=== PATIENT | female | born 1950 | race Caucasian/White ===

== ENCOUNTER 2018-03-05 12:31 | Observation (INO) | payer OTHER, BC ==
--- NOTE | 2018-03-05 12:50 | PDOC ---
History of Present Illness - History of Present Illness Initial Comments: 67 year old female with PMH of HTN, HLD, HRT (estrogen) and sciatica presenting with chest pain and subjective SOB for the past two days. States that she had unusual leg swelling yesterday after work with left > right and noticed that she became short of breath while at home. She also had a slight central chest pressure, non radiating, 2/10 in severity, no nausea, no diaphoresis, but it was exertional. Denies fevers, chills cough, GI symptoms, or urinary symptoms. Denies recent travel or extended immobility. She had a negative stress test one month prior. 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 03/05/18 16:36 <Lev Mcgarry - Last Filed: 03/05/18 16:36> <Carolyn Means - Last Filed: 03/06/18 12:47> - General Chief Complaint: Chest Pain Stated Complaint: CHEST PAIN Time Seen by Provider: 03/05/18 12:50 Past History - Past Medical History Anemia: No Asthma: No Cancer: No Cardiac Disorders: No CVA: No COPD: No CHF: No Dementia: No Diabetes: No GI Disorders: Yes (COLON POLYPS; PEPTIC ULCER;H/H) Disorders: No HTN: Yes Hypercholesterolemia: Yes Liver Disease: No Seizures: No Thyroid Disease: No - Surgical History Abdominal Surgery: No Appendectomy: No Cardiac Surgery: Yes (cath, negative, no stents) Cholecystectomy: No Lung Surgery: No Neurologic Surgery: No Orthopedic Surgery: Yes (LEFT ROTATOR CUFF; RIGHT TENNIS ELBOW; ARTHOSCOPY RIGHT KNEE) - Suicide/Smoking/Psychosocial Hx Smoking History: Never smoked Have you smoked in the past 12 months: No Hx Alcohol Use: No Drug/Substance Use Hx: No Substance Use Type: None Hx Substance Use Treatment: No <Lev Mcgarry - Last Filed: 03/05/18 16:36> <Carolyn Means - Last Filed: 03/06/18 12:47> - Past Medical History Allergies/Adverse Reactions: Allergies Allergy/AdvReac Type Severity Reaction Status Date / Time sesame seed Allergy Swelling Verified 03/05/18 12:35 Home Medications: Ambulatory Orders Estradiol 2 mg PO DAILY 01/02/15 Hctz 25Mg/Triamterene [Dyazide 25/37.5 -] 1 cap PO DAILY 01/02/15 Simvastatin [Zocor -] 20 mg PO HS 01/02/15 Apremilast [Otezla] 30 mg PO DAILY 01/03/15 Aspirin Coated [Ecotrin -] 81 mg PO DAILY 01/03/15 Cyanocobalamin [Vitamin B12 -] 1,000 mcg PO DAILY 01/03/15 Gabapentin [Neurontin -] 300 mg PO BID 01/03/15 Valsartan 160 mg PO DAILY 05/26/16 Trazodone HCl 50 mg PO HS 06/03/16 Review of Systems - Review of Systems Constitutional: No: Chills, Diaphoresis HEENTM: No: See HPI, Blurred Vision, Tearing Respiratory: Yes: Shortness of Breath, SOB with Exertion. No: Cough, Orthopnea , Wheezing, Productive cough Cardiac (ROS): Yes: Chest Pain, Chest Tightness. No: Edema, Irregular Heart Rate, Lightheadedness, Palpitations ABD/GI: No: Diarrhea, Nausea, Vomiting : No: Burning, Dysuria, Discharge, Frequency Integumentary: No: Bruising, Change in Color, Erythema, Flushing, Lesions, Rash Neurological: No: Headache, Numbness, Paresthesia, Seizure, Tingling, Weakness Psychiatric: No: Anxiety, Depression Hematologic/Lymphatic: No: Anemia, Blood Clots <Lev Mcgarry - Last Filed: 03/05/18 16:36> *Physical Exam - Vital Signs Last Vital Signs Temp Pulse Resp BP Pulse Ox 98.2 F 82 20 160/61 99 03/05/18 12:33 03/05/18 12:33 03/05/18 12:33 03/05/18 12:33 03/05/18 12:33 - Physical Exam General Appearance: Yes: Nourished, Appropriately Dressed. No: Apparent Distress HEENT: positive: EOMI, KAREN, Normal ENT Inspection, Normal Voice Neck: positive: Trachea midline, Normal Thyroid, Supple. negative: Tender, Rigid Respiratory/Chest: positive: Lungs Clear, Normal Breath Sounds. negative: Chest Tender, Respiratory Distress, Accessory Muscle Use Cardiovascular: positive: Regular Rhythm, Regular Rate Gastrointestinal/Abdominal: positive: Normal Bowel Sounds, Flat, Soft. negative : Tender Musculoskeletal: positive: Normal Inspection. negative: Decreased Range of Motion Extremity: positive: Normal Capillary Refill, Normal Inspection, Normal Range of Motion. negative: Tender, Swelling Integumentary: positive: Normal Color, Dry, Warm. negative: Erythema, Swelling Neurologic: positive: Fully Oriented, Alert, Normal Mood/Affect, Normal Response , Motor Strength 5/5 <ZeferinoYidaysi - Last Filed: 03/05/18 16:36> - Vital Signs Last Vital Signs Temp Pulse Resp BP Pulse Ox 97.7 F 56 L 19 162/72 96 03/06/18 06:43 03/06/18 10:00 03/06/18 10:00 03/06/18 10:00 03/06/18 06:43 <Carolyn Means - Last Filed: 03/06/18 12:47> Heart Score/ECG Review - History History: Moderately suspicious - Electrocardiogram EKG: Non specific repolarization disturbance - Age Age: >/= 65 - Risk Factors Risk Factors Heart Score: Yes Hx Hypercholesterolemia, Yes Hx Hypertension Based on the list above the patient has:: 1-2 risk factors - Troponin Troponin: </= normal limit - Score Heart Score - Total: 5 <ZeferinoYidaysi - Last Filed: 03/05/18 16:36> ED Treatment Course - LABORATORY CBC & Chemistry Diagram: 03/05/18 13:34 03/05/18 13:34 <ZeferinoYidaysi - Last Filed: 03/05/18 16:36> - LABORATORY CBC & Chemistry Diagram: 03/06/18 06:10 03/06/18 06:10 - ADDITIONAL ORDERS Additional order review: 03/05/18 13:34 RBC 3.74 MCV 90.2 MCHC 35.2 RDW 12.8 MPV 7.2 L Neutrophils % 76.4 Lymphocytes % 17.1 Monocytes % 4.9 Eosinophils % 1.2 Basophils % 0.4 - Medications Given in the ED: ED Medications Discontinued Medications Generic Name Dose Route Start Last Admin Trade Name Freq PRN Reason Stop Dose Admin Aspirin 162 mg 03/05/18 18:54 03/05/18 19:30 Asa - PO 03/05/18 18:55 162 mg ONCE ONE Administration Aspirin 81 mg 03/05/18 18:54 03/05/18 19:30 Asa - PO 03/05/18 18:55 81 mg ONCE ONE Administration Potassium Chloride 20 meq 03/05/18 19:44 03/05/18 20:00 K-Dur - PO 03/05/18 19:45 20 meq ONCE ONE Administration <Carolyn Means - Last Filed: 03/06/18 12:47> Medical Decision Making - Medical Decision Making 67 year old female with with chest pain and heart score of 5 given exertional chest pain, HTN, HLD, and age. EKG deomsitring NSR, rate 78, OR 132, QRS 84, [id number], and ST wave flattening in V2-V6. Labs and first troponin normal. CTA negative for PE. Donald discussed with Dr. Schwartz for tele obs admission under Dr. Henry. ASA given. 03/05/18 18:51 <Lev Mcgarry - Last Filed: 03/05/18 16:36> *DC/Admit/Observation/Transfer <Lev Mcgarry - Last Filed: 03/05/18 16:36> <Carolyn Means - Last Filed: 03/06/18 12:47> Diagnosis at time of Disposition: Chest pain
[2018-03-05 13:45] LABS: BASO % 0.4 % (0-2.0); EOS % 1.2 % (0-4.5); HEMATOCRIT 33.8 % (32.4-45.2); HEMOGLOBIN 11.9 GM/dL (10.7-15.3); LYMPH % 17.1 % (8-40); MCH 31.8 pg (25.7-33.7); MCHC 35.2 g/dl (32.0-36.0); MEAN CELL VOLUME 90.2 fl (80-96); MEAN PLT VOLUME 7.2 fl (7.5-11.1); MONO % 4.9 % (3.8-10.2); NEUT % 76.4 % (42.8-82.8); PLATELET COUNT 296 K/MM3 (134-434); RBC 3.74 M/mm3 (3.60-5.2); RDW 12.8 % (11.6-15.6); WHITE BLOOD COUNT 9.5 K/mm3 (4.0-10.0)
[2018-03-05 13:55] LABS: INR 1.08 (0.82-1.09); PROTHROMBIN TIME (PATIENT) 12.2 SEC (9.7-13.0)
[2018-03-05 14:03] LABS: ALBUMIN 2.9 g/dl (3.4-5.0); ANION GAP 6 (8-16); BILIRUBIN,TOTAL 0.3 mg/dL (0.2-1.0); BLOOD UREA NITROGEN 12 mg/dL (7-18); CALCIUM 8.5 mg/dL (8.5-10.1); CHLORIDE 108 mmol/L (98-107); CO2 28 mmol/L (21-32); CREATININE 0.9 mg/dL (0.55-1.02); GLUCOSE,RANDOM 124 mg/dL (74-106); POTASSIUM 3.4 mmol/L (3.5-5.1); SGOT/AST 20 U/L (15-37); SGPT/ALT 26 U/L (12-78); SODIUM 142 mmol/L (136-145); TOT PROT 6.2 g/dl (6.4-8.2)
[2018-03-05 14:06] LABS: ALK PHOS 59 U/L (45-117)
--- NOTE | 2018-03-05 17:21 | PDOC ---
Attending Attestation - Resident Resident Name: Lev Mcgarry - ED Attending Attestation I have performed the following: I have examined & evaluated the patient, The case was reviewed & discussed with the resident, I agree w/resident's findings & plan, Exceptions are as noted - HPI HPI: 03/05/18 17:12 Patient is a 67 year old female with a significant past medical history of hypertension who presents to the ED with complaints of bilateral leg swelling that began yesterday evening. Patient reports getting home from work yesterday evening when she began to notice bilateral leg swelling. She reports her left leg appearing like a big balloon, while her right leg looked like a small balloon. Patient reports experiencing associated symptoms of mid sternal chest pressure, as well as slight difficulty breathing, prompting her to come into the ED for further evaluation. She reports she was winded when walking to the [employer] this morning. Pt takes estrogen for hormone replacement. She reports her leg swelling has improved today. Denies fevers, chills. Denies dysuria, hematuria. Denies contact with sick individuals, out of state travelling. Denies any other symptoms. Allergies: Sesame Social history: No smoking. No alcohol. No illicit drugs. Surgical history: left rotator cuff, left knee PMD: Dr. [place] Sunshine - Physicial Exam PE: 03/05/18 18:09 GENERAL: Awake, alert, and fully oriented, in no acute distress HEAD: No signs of trauma EYES: PERRLA, EOMI, sclera anicteric, conjunctiva clear ENT: Auricles normal inspection, hearing grossly normal, nares patent, oropharynx clear without exudates. Moist mucosa NECK: Normal ROM, supple, no lymphadenopathy, JVD, or masses LUNGS: Breath sounds equal, clear to auscultation bilaterally. No wheezes, and no crackles HEART: Regular rate and rhythm, normal S1 and S2, no murmurs, rubs or gallops ABDOMEN: Soft, nontender, normoactive bowel sounds. No guarding, no rebound. No masses EXTREMITIES: Normal range of motion, no edema. No clubbing or cyanosis. No cords, erythema, or tenderness NEUROLOGICAL: Normal speech, cranial nerves intact, negative pronator drift, 5/ 5 strength in all 4 extremities, normal sensation to light touch in all 4 extremities, normal cerebellar exam, normal gait, normal reflexes and tone SKIN: Warm, Dry, normal turgor, no rashes or lesions noted. - Medical Decision Making 03/05/18 18:16 67-year-old female with a history of hypertension hyperlipidemia presents emergency Department with 1 day of dyspnea on exertion, chest discomfort and resolved lower extremity edema. Vitals unremarkable. EKG with mild ST depressions in V5 and V6. Heart score 6. Given patient is on estrogen, will obtain a CTA to rule out PE. Given elevated HS and ST depressions on EKG, pt will need observation. Heart Score/ECG Review - History History: Moderately suspicious - Electrocardiogram EKG: Non specific repolarization disturbance - Age Age: >/= 65 - Risk Factors Risk Factors Heart Score: Yes Hx Hypercholesterolemia, Yes Hx Hypertension, Yes Hx Obesity Based on the list above the patient has:: >/=3 risk factors or Hx atherosclerotic disease - Troponin Troponin: </= normal limit - Score Heart Score - Total: 6 #1 03/05/18 18:14 Twelve-lead EKG was performed and reviewed by me. Normal sinus rhythm, rate 78. Normal axis. Mild ST depressions in leads V5 and V6. No ST elevations.
[2018-03-05] MEDS ORDERED: ASPIRIN 81 MG CHEWABLE TABLETS PO ONE ×2 (18:54)
[2018-03-05] MEDS ORDERED: ASPIRIN 81 MG CHEWABLE TABLETS ONE (19:24)
[2018-03-05] MEDS ORDERED: POTASSIUM CHLORIDE TABS 20 MEQ TABLET.ER (FP) PO ONE ×2 (19:44→20:12)
--- NOTE | 2018-03-05 20:10 | HP ---
CHIEF COMPLAINT: chest tightness and SOB PCP: Bita HISTORY OF PRESENT ILLNESS: This is a 67 year old female with a significant past medical history of HTN, HLD who presented to the ED with chest tightness since this morning with associated shortness of breath. She also noted some left arm pain with tingling. Pt reports just not feeling like herself. 2 days ago she also noticed swelling of her left leg after work which improved with elevation but is still slightly present. She also reports that she awoke with the right side of her face swollen yesterday that resolved spontaneously and today awoke with left sided facial swelling. She reports that the chest tightness and shortness of breath have not improved. ER course was notable for: (1) ECG with T wave flattening leads 3, aVF, V2-V6 (2) troponin neg (3) CTA neg for PE Recent Travel: pt denies PAST MEDICAL HISTORY: HTN, HLD, colon polyps, PUD, hiatal hernia, sciatica, psoriasis PAST SURGICAL HISTORY: cardiac cath 2009, WNL, no stents partial hysterectomy R breast lumpectomy 1968 Breas reduction tonsillectomy L rotator cuff R tennis elvow R knee arthroscopy Social History: Smoking: pt denies current or prior use Alcohol: pt denies Drugs: pt denies Family History: father age 27, accident mother alive, age 95, [place]/CABG age 80 brother , brain aneurysm aunt , stomach and breast CA Allergies sesame seed Allergy (Verified 03/05/18 12:35) Swelling HOME MEDICATIONS: 3 Medication Instructions Recorded Estradiol 2 mg PO DAILY 01/02/15 Hctz 25Mg/Triamterene [Dyazide 1 cap PO DAILY 01/02/1537.5 -] Simvastatin [Zocor -] 20 mg PO HS 01/02/15 Apremilast [Otezla] 30 mg PO DAILY 01/03/15 Aspirin Coated [Ecotrin -] 81 mg PO DAILY 01/03/15 Cyanocobalamin [Vitamin B12 -] 1,000 mcg PO DAILY 01/03/15 Gabapentin [Neurontin -] 300 mg PO BID 01/03/15 Valsartan 160 mg PO DAILY 05/26/16 Trazodone HCl 50 mg PO HS 06/03/16 REVIEW OF SYSTEMS CONSTITUTIONAL: Absent: fever, chills, diaphoresis, generalized weakness, malaise, loss of appetite, weight change HEENT: Present: facial swelling Absent: rhinorrhea, nasal congestion, throat pain, throat swelling, difficulty swallowing, mouth swelling, ear pain, eye pain, visual changes CARDIOVASCULAR: Present: chest pain Absent: syncope, palpitations, irregular heart rate, lightheadedness, peripheral edema RESPIRATORY: Present: shortness of breath Absent: cough, dyspnea with exertion, orthopnea, wheezing, stridor, hemoptysis GASTROINTESTINAL: Absent: abdominal pain, abdominal distension, nausea, vomiting, diarrhea, constipation, melena, hematochezia GENITOURINARY: Absent: dysuria, frequency, urgency, hesitancy, hematuria, flank pain, genital pain MUSCULOSKELETAL: Absent: myalgia, arthralgia, joint swelling, back pain, neck pain SKIN: Absent: rash, itching, pallor HEMATOLOGIC/IMMUNOLOGIC: Absent: easy bleeding, easy bruising, lymphadenopathy, frequent infections ENDOCRINE: Absent: unexplained weight gain, unexplained weight loss, heat intolerance, cold intolerance NEUROLOGIC: Absent: headache, focal weakness or paresthesias, dizziness, unsteady gait, seizure, mental status changes, bladder or bowel incontinence PSYCHIATRIC: Absent: anxiety, depression, suicidal or homicidal ideation, hallucinations. PHYSICAL EXAMINATION Vital Signs - 24 hr 3 03/05/18 03/05/18 03/05/18 12:33 13:41 16:57 Temperature 98.2 F 98.2 F Pulse Rate 82 Pulse Rate [ 86 Apical] Respiratory 20 20 Rate Blood Pressure 160/61 159/63 Blood Pressure 154/66 [Right Arm] O2 Sat by Pulse 99 99 Oximetry (%) GENERAL: Awake, alert, and fully oriented, in no acute distress. HEAD: Normal with no signs of trauma. EYES: Pupils equal, round and reactive to light, extraocular movements intact, sclera anicteric, conjunctiva clear. No lid lag. EARS, NOSE, THROAT: Ears normal, nares patent, oropharynx clear without exudates. Moist mucous membranes. no facial swelling noted NECK: Normal range of motion, supple without lymphadenopathy, JVD, or masses. LUNGS: Breath sounds equal, clear to auscultation bilaterally. No wheezes, and no crackles. No accessory muscle use. HEART: Regular rate and rhythm, normal S1 and S2 without murmur, rub or gallop. ABDOMEN: Soft, nontender, not distended, normoactive bowel sounds, no guarding, no rebound, no masses. No hepatomegaly or splenomegaly. MUSCULOSKELETAL: Normal range of motion at all joints. No bony deformities or tenderness. No CVA tenderness. UPPER EXTREMITIES: 2+ pulses, warm, well-perfused. No cyanosis. No clubbing. No peripheral edema. LOWER EXTREMITIES: 2+ pulses, warm, well-perfused. No calf tenderness. No peripheral edema right; trace left. NEUROLOGICAL: Cranial nerves II-XII intact. Normal speech. Normal gait. PSYCHIATRIC: Cooperative. Good eye contact. Appropriate mood and affect. SKIN: Warm, dry, normal turgor, no rashes or lesions noted, normal capillary refill. Laboratory Results - last 24 hr 3 03/05/18 03/05/18 03/05/18 03/05/18 13:34 13:34 13:34 18:30 WBC 9.5 RBC 3.74 Hgb 11.9 Hct 33.8 MCV 90.2 MCH 31.8 MCHC 35.2 RDW 12.8 Plt Count 296 MPV 7.2 L Absolute Neuts (auto) 7.2 Neutrophils % 76.4 Lymphocytes % 17.1 Monocytes % 4.9 Eosinophils % 1.2 Basophils % 0.4 Nucleated RBC % 0 PT with INR 12.20 INR 1.08 Sodium 142 Potassium 3.4 L Chloride 108 H Carbon Dioxide 28 Anion Gap 6 L BUN 12 Creatinine 0.9 Creat Clearance w eGFR > 60 Random Glucose 124 H Calcium 8.5 Total Bilirubin 0.3 AST 20 ALT 26 Alkaline Phosphatase 59 Creatine Kinase 86 Troponin I < 0.02 < 0.02 Total Protein 6.2 L Albumin 2.9 L ECG Normal sinus rhythm vent rate78, QTC 490, nonspecific ST/T wave abnomality, T wave flattened leads 3, aVF, V2-V6 prolonged QTC Radiology Reports EXAM: CTA CHEST WITH IV CONTRAST. PULMONARY EMBOLUS PROTOCOL. 3D MIP REASON FOR EXAM: r/o PE COMPARISON: None THIS IS A PRELIMINARY REPORT FROM [facility] FINDINGS: No evidence of pulmonary embolus or aortic dissection Small bilateral effusions with atelectasis. The upper lungs are clear. There is no pneumothorax. Heart size is normal and without pericardial effusion. No endobronchial lesions are seen. No pathologic mediastinal adenopathy. Bony thoracic cage and spine are intact with degenerative spine. 2.2 cm left renal cyst. IMPRESSION No CT evidence of pulmonary embolus or aortic dissection. Small bilateral effusions with atelectasis One or more of the following dose reduction techniques were used: automated exposure control, adjustment of the mA and/or kV according to patient size, use of iterative reconstruction technique. Individualized dose optimization techniques were used for this CT. THIS DOCUMENT HAS BEEN ELECTRONICALLY SIGNED Ariana Gannon D.O. 03/05/2018 19:44 EST ASSESSMENT/PLAN: 67yF with PMH HTN, HLD, colon polyps, PUD, hiatal hernia, sciatica, psoriasis presented to the ED with multiple complaints including chest tightness, SOB, left arm pain and tingling, facial swelling and left leg swelling. Chest pain - admit to tele - cardiology consult - troponin neg x 2, trend x 1 more - ECG in am, no old ECG to compare - CTA neg for PE - given ASA in ED HTN/HLD - cont home meds Leg swelling - doppler US venous ordered to r/o DVT - cont elevation PUD - no longer on zantac, monitor for dyspepsia sciatica - cont neurontin DVT PPX - low risk given expected LOS <48h FEN - tolerating po - BMP in am - low sodium/low fat diet Dispo: Pt currently requires further observation. Visit type - Emergency Visit Emergency Visit: Yes ED Registration Date: 03/05/18 Care time: The patient presented to the Emergency Department on the above date and was hospitalized for further evaluation of their emergent condition. - New Patient This patient is new to me today: Yes Date on this admission: 03/05/18 - Critical Care Critical Care patient: No Hospitalist Screening - Colonoscopy Questionnaire Colonoscopy Questionnaire: Colonoscopy Questionnaire - Patient: 50 - 75 years old and never had a screening colonoscopy: No History of colon or rectal polyps, or CA: Yes History of IBD, Crohn's disease or UC: No History of abdominal radiation therapy as a child: No - Relative: 1 with colon or rectal CA, or polyps at age 60 or younger: No Colon or rectal CA diagnosed at age 45 or younger: No Multiple relatives with colon or rectal CA: No - Outcome: Screening Result: Positive Screen
[2018-03-06 07:47] LABS: BASO % 0.3 % (0-2.0); EOS % 2.5 % (0-4.5); HEMATOCRIT 33.5 % (32.4-45.2); HEMOGLOBIN 11.9 GM/dL (10.7-15.3); LYMPH % 21.6 % (8-40); MCH 31.8 pg (25.7-33.7); MCHC 35.4 g/dl (32.0-36.0); MEAN CELL VOLUME 89.8 fl (80-96); MEAN PLT VOLUME 7.2 fl (7.5-11.1); NEUT % 67.6 % (42.8-82.8); PLATELET COUNT 270 K/MM3 (134-434); RBC 3.73 M/mm3 (3.60-5.2); RDW 12.6 % (11.6-15.6); WHITE BLOOD COUNT 8.4 K/mm3 (4.0-10.0)
[2018-03-06 08:07] LABS: ANION GAP 5 (8-16); BLOOD UREA NITROGEN 8 mg/dL (7-18); CALCIUM 8.4 mg/dL (8.5-10.1); CHLORIDE 107 mmol/L (98-107); CO2 30 mmol/L (21-32); CREATININE 0.7 mg/dL (0.55-1.02); GLUCOSE,RANDOM 72 mg/dL (74-106); MAGNESIUM 1.9 mg/dL (1.8-2.4); POTASSIUM 3.7 mmol/L (3.5-5.1); SODIUM 142 mmol/L (136-145)
[2018-03-06] MEDS ORDERED: PATIENT'S OWN MEDICATION (NON-FORMULARY) (Estradiol [Estradiol] 2 MG) PO SCH (10:00)
[2018-03-06] MEDS ORDERED: PATIENT'S OWN MEDICATION (NON-FORMULARY) (Apremilast [Otezla] 30 MG) PO SCH (10:00)
[2018-03-06] MEDS: VALSARTAN 160 MG TABLET (UD) PO SCH (10:11)
[2018-03-06] MEDS: TRIAMTERENE AND HCTZ - 37.5 MG/25 MG CAPSULE PO SCH (10:11)
[2018-03-06] MEDS: ASPIRIN COATED 81 MG TABLET.EC PO SCH (10:12)
[2018-03-06] MEDS: CYANOCOBALAMIN 1,000 MCG TABLET (FP) PO SCH (10:12)
[2018-03-06] MEDS: GABAPENTIN 300 MG CAPSULE (FP) PO SCH ×2 (10:12→21:08)
--- NOTE | 2018-03-06 10:20 | EKG ---
Test Reason : Blood Pressure : / mmHG Vent. Rate : 078 BPM Atrial Rate : 078 BPM P-R Int : 132 ms QRS Dur : 084 ms QT Int : 430 ms P-R-T Axes : 061 001 017 degrees QTc Int : 490 ms NORMAL SINUS RHYTHM POSSIBLE LEFT ATRIAL ENLARGEMENT NONSPECIFIC ST AND T WAVE ABNORMALITY PROLONGED QT ABNORMAL ECG WHEN COMPARED WITH ECG OF 07-SEP-2006 07:40, T WAVE VARIATION Confirmed by FUNMILAYO GARCIA, SHIREEN ([id number]) on 03/06/2018 10:20:14 AM Referred By: Confirmed By:SHIREEN MELLO MD
--- NOTE | 2018-03-06 10:37 | PN ---
Progress Note, Physician Chief Complaint: Patient is a 67 year old female with a significant past medical history of hypertension who presents to the ED with complaints of bilateral leg swelling that began yesterday evening. Patient reports getting home from work yesterday evening when she began to notice bilateral leg swelling. She reports her left leg appearing like a big balloon, while her right leg looked like a small balloon. Patient reports experiencing associated symptoms of mid sternal chest pressure, as well as slight difficulty breathing, prompting her to come into the ED for further evaluation. She reports she was winded when walking to the [employer] this morning. Pt takes estrogen for hormone replacement. She reports her leg swelling has improved today. History of Present Illness: patient seen in ER today leg swelling much reduced as well as facial swelling complaining of intermittent cough with mid epigastric chest tightness - Current Medication List Current Medications: Active Medications Aspirin (Ecotrin -) 81 mg PO DAILY [facility] Last Admin: 03/06/18 10:12 Dose: 81 mg Atorvastatin Calcium (Lipitor -) 10 mg PO HS [facility] Cyanocobalamin (Vitamin B12 -) 1,000 mcg PO DAILY [facility] Last Admin: 03/06/18 10:12 Dose: 1,000 mcg Gabapentin (Neurontin -) 300 mg PO BID [facility] Last Admin: 03/06/18 10:12 Dose: 300 mg Non-Formulary Medication (Apremilast [Otezla]) 30 mg PO DAILY [facility] Non-Formulary Medication (Estradiol [Estradiol]) 2 mg PO DAILY [facility] Trazodone HCl (Desyrel -) 50 mg PO HS [facility] Triamterene/HCTZ (Dyazide 25/37.5mg) 1 cap PO DAILY [facility] Last Admin: 03/06/18 10:11 Dose: 1 cap Valsartan (Diovan -) 160 mg PO DAILY [facility] Last Admin: 03/06/18 10:11 Dose: 160 mg - Objective Vital Signs: Vital Signs Temperature 97.7 F 03/06/18 06:43 Pulse Rate 56 L 03/06/18 10:00 Respiratory Rate 19 03/06/18 10:00 Blood Pressure 162/72 03/06/18 10:00 O2 Sat by Pulse Oximetry (%) 96 03/06/18 06:43 Constitutional: Yes: Calm Cardiovascular: Yes: Regular Rate and Rhythm, S1, S2 Respiratory: Yes: CTA Bilaterally Gastrointestinal: Yes: Normal Bowel Sounds, Soft Edema: Yes (trace) Neurological: Yes: Alert, Oriented Labs: CBC, BMP 03/06/18 06:10 03/06/18 06:10 INR, PTT INR 1.08 (0.82-1.09) 03/05/18 13:34 Problem List - Problems (1) Chest pain Assessment/Plan: tele monitoring CE 3 sets negative cardiology evaluation CTA prelim no PE awaiting final report echo aspirin and statin ekg noted for NSR and non specific t wave abnormality Code(s): R07.9 - CHEST PAIN, UNSPECIFIED (2) HTN (hypertension) Assessment/Plan: hctz and diovan Code(s): I10 - ESSENTIAL (PRIMARY) HYPERTENSION (3) Leg swelling Assessment/Plan: doppler no dvt currently leg swelling much reduced Code(s): M79.89 - OTHER SPECIFIED SOFT TISSUE DISORDERS
--- NOTE | 2018-03-06 10:44 | CON.CARD ---
Consult Consult Specialty:: cardio - History of Present Illness Chief Complaint: cp and sob History of Present Illness: 67 F noted cp, sob, leg swelling at home saw me 12/23 c/o localized pain L pectoral, sporadic at rest for 2 days off and on, lasting couple of minutes. no obvious GERD/GI, Mskel features. she noted no decr E.T., cp or sob with routine activity (limited by sciatica) stress echo ordered (pt with nonspecific ST-Ts on ECG since 2015--didn't complete stress test at that time as ordered) PRESENT SX'S: 3 days ago when arrived home from work noted L ankle/foot swollen. never had this before. no pain.--resolved by evening/AM next day yesterday AM walking to [employer] from car noted very unusual sob for her-- had to walk slower, not stop. no cp with this. made it home ok. vacuuming floor with small hand-held machine later in day noted sob which is very unusual for her. then seated later in day felt "sharp" pain center of chest assctd with tingling in L hand. no assctd diaph/LH/sob with that, no radiation. resolved in 1-5 min--no more cp since. PMH: HTN HPL FH (brother) ? aorta or LE aneurysm rupture (fatal) - Alcohol/Substance Use Hx Alcohol Use: No - Smoking History Smoking history: Never smoked Have you smoked in the past 12 months: No Home Medications - Allergies Allergies/Adverse Reactions: Allergies Allergy/AdvReac Type Severity Reaction Status Date / Time sesame seed Allergy Swelling Verified 03/05/18 12:35 - Home Medications Home Medications: Ambulatory Orders Estradiol 2 mg PO DAILY 01/02/15 Hctz 25Mg/Triamterene [Dyazide 25/37.5 -] 1 cap PO DAILY 01/02/15 Simvastatin [Zocor -] 20 mg PO HS 01/02/15 Apremilast [Otezla] 30 mg PO DAILY 01/03/15 Aspirin Coated [Ecotrin -] 81 mg PO DAILY 01/03/15 Cyanocobalamin [Vitamin B12 -] 1,000 mcg PO DAILY 01/03/15 Gabapentin [Neurontin -] 300 mg PO BID 01/03/15 Valsartan 160 mg PO DAILY 05/26/16 Trazodone HCl 50 mg PO HS 06/03/16 Review of Systems - Review of Systems Constitutional: denies: Chills, Fever Eyes: denies: Eye Pain HENT: denies: Nasal Congestion Neck: denies: Stiffness Cardiovascular: denies: Palpitations Respiratory: denies: Orthopnea, PND Gastrointestinal: denies: Diarrhea, Rectal Bleeding Genitourinary: denies: Burning, Hematuria Musculoskeletal: denies: Muscle Pain Integumentary: denies: Rash Neurological: denies: Numbness, Seizure, Syncope Endocrine: denies: Excessive Sweating Hematology/Lymphatic: denies: Excessive Bleeding Vital Signs: Vital Signs Temperature 97.7 F 03/06/18 06:43 Pulse Rate 56 L 03/06/18 10:00 Respiratory Rate 19 03/06/18 10:00 Blood Pressure 162/72 03/06/18 10:00 O2 Sat by Pulse Oximetry (%) 96 03/06/18 06:43 Constitutional: Yes: Well Nourished, No Distress Eyes: No: Sclera Icterus HENT: No: Nasal Congestion Neck: No: Decreased ROM Respiratory: Yes: CTA Bilaterally. No: Accessory Muscle Use, Rales, Wheezes Gastrointestinal: Yes: Normal Bowel Sounds. No: Distention, Hepatomegaly, Palpable Mass, Tenderness Cardiovascular: Yes: Regular Rate and Rhythm JVD: Yes Carotid Bruit: No PMI: Non-Displaced Heart Sounds: Yes: S1, S2. No: Gallop Murmur: No: Systolic Murmur, Diastolic Murmur Musculoskeletal: Yes: Other (No kyphosis) Extremities: No: Cool, Cyanosis Edema: No Peripheral Pulses: 2+ Left Carotid, 2+ Right Carotid, 2+ Left Doralis Pedis, 2+ Right Dorsalis Pedis Integumentary: No: Jaundice Neurological: Yes: Alert, Oriented (x3) Psychiatric: No: Agitated - Other Data Labs, Other Data: CBC, BMP 03/06/18 06:10 03/06/18 06:10 INR, PTT INR 1.08 (0.82-1.09) 03/05/18 13:34 Troponin, BNP 03/05/18 03/05/18 03/06/18 13:34 18:30 01:49 Troponin I < 0.02 < 0.02 < 0.02 Troponin, BNP 03/05/18 03/05/18 03/06/18 13:34 18:30 01:49 Troponin I < 0.02 < 0.02 < 0.02 Laboratory Tests 03/05/18 03/05/18 03/06/18 13:34 18:30 01:49 WBC Hgb Plt Count Sodium Potassium Carbon Dioxide BUN Creatinine Total Bilirubin 0.3 AST 20 ALT 26 Troponin I < 0.02 < 0.02 < 0.02 03/06/18 03/06/18 06:10 06:10 WBC 8.4 Hgb 11.9 Plt Count 270 Sodium 142 Potassium 3.7 Carbon Dioxide 30 BUN 8 Creatinine 0.7 Total Bilirubin AST ALT Troponin I Assessment/Plan ECG--NSR, no path q's. + NSST-Ts diffusely. similar to 12/23 office tracing CXR--clear lungs/pleura Stress Echo 01/23: 6 min (7 METs). No CP. 1-[address] depressions inferior leads, V4-6. NO ECHO ISCHEMIA SOB: -new exertional intolerance on DOA (03/05). -assctd unilateral LLE swelling on 03/03--no cord/tenderness on exam, sono negative for DVT. -no overt volume on exam but JVD impressive -CTA pending--apparently no PE prelim read (per admitting hospitalist note)--f/ u official report when available -echo done today--f/u report -nuclear stress test -check BNP -suspect new diastolic CHF here--if ischemia eval negative, will plan lasix trial and observe sx's chest pain: -past h/o non-cardiac CP with false positive nuclear-->benign cath per pt -recent same with stress echo likely false positive ECG, echo images normal augmentation -atypical sx's yesterday, ? anxiety related to new sob sx's. -ekg, enzymes benign -plan nuclear stress test to confidently r/o ischemia HTN: -current bp moderately elevated, ? anxiety component given ER presentation -continue home meds, observe BP trend for 24 hrs more HPL: -cont home statin
[2018-03-06 13:36] VITALS: BMI 33.6
[2018-03-06 13:44] LABS: N-TERMINAL BNP 776.48 pg/ml (5-125)
--- NOTE | 2018-03-06 16:52 | ECHO ---
Name: DINAH RODRIGUEZ Exam:Adult Echocardiogram Study Date: 03/06/2018 11:46 AM Age: 67 yrs Reason For Study: WALL MOTION Height: 59 in Weight: 140 lb BSA: 1.6 m2 MMode/2D Measurements & Calculations IVSd: 0.81 cm Ao root diam: 2.1 cm LVIDd: 4.7 cm LA dimension: 3.9 cm LVIDs: 3.1 cm LVPWd: 0.94 cm EDV(Teich): 102.1 ml RV S Alexis: 12.3 cm/sec ESV(Teich): 38.9 ml Doppler Measurements & Calculations MV E max alexis: 103.2 cm/sec MR max alexis: 293.2 cm/sec MV A max alexis: 106.6 cm/sec MR max P.4 mmHg MV E/A: 0.97 MV dec time: 0.23 sec TR max alexis: 247.3 cm/sec Med Peak E' Alexis: 8.0 cm/sec TR max P.5 mmHg Med E/e': 12.9 Lat Peak E' Alexis: 7.4 cm/sec Lat E/e': 13.9 Procedure Technically limited study. Left Ventricle The left ventricle is normal in size. Left ventricular systolic function is normal. Ejection Fraction = 60- 65%. No regional wall motion abnormalities noted. Right Ventricle The right ventricle is normal size. The right ventricular systolic function is normal. RV systolic TD I is 12 cm/s. Atria The left atrial size is normal. Right atrial size is normal. Mitral Valve The mitral valve is normal in structure and function. There is mild mitral regurgitation. Tricuspid Valve The tricuspid valve is normal in structure and function. There is mild tricuspid regurgitation. Pulmo nary artery systolic pressure is at least 35 mmHg assuming RA pressure of 8 mmHg. Aortic Valve The aortic valve is normal in structure and function. The aortic valve is trileaflet. The aortic valv e opens well. No aortic regurgitation is present. Pulmonic Valve The pulmonic valve is not well visualized. Great Vessels The aortic root is normal size. Pericardium/Pleura There is no pericardial effusion. Interpretation Summary Technically limited study The left ventricle is normal in size. Left ventricular systolic function is normal. No regional wall motion abnormalities noted. Ejection Fraction = 60-65%. The right ventricular systolic function is normal. The left atrial size is normal. Right atrial size is normal. There is mild mitral regurgitation. There is mild tricuspid regurgitation. Pulmonary artery systolic pressure is at least 35 mmHg assuming RA pressure of 8 mmHg There is no pericardial effusion. Carlos Lloyd MD 03/06/2018 04:51 PM
[2018-03-06] MEDS ORDERED: traZODone HCL 50 MG TABLET (FP) PO SCH (22:00)
[2018-03-06] MEDS ORDERED: ATORVASTATIN CA 10 MG TABLET (FP) PO SCH (22:00)
[2018-03-07 07:57] LABS: ALBUMIN 3.1 g/dl (3.4-5.0); ANION GAP 9 (8-16); BLOOD UREA NITROGEN 7 mg/dL (7-18); CALCIUM 9.5 mg/dL (8.5-10.1); CHLORIDE 106 mmol/L (98-107); CO2 29 mmol/L (21-32); GLUCOSE,RANDOM 80 mg/dL (74-106); HDL CHOLESTEROL 87 mg/dL (40-60); POTASSIUM 3.9 mmol/L (3.5-5.1); SODIUM 144 mmol/L (136-145); TRIGLYCERIDES 105 mg/dL (35-160)
[2018-03-07 07:58] LABS: CHOLESTEROL 151 mg/dL (50-200)
[2018-03-07 08:01] LABS: ALK PHOS 65 U/L (45-117); BILIRUBIN,TOTAL 0.4 mg/dL (0.2-1.0); CREATININE 0.8 mg/dL (0.55-1.02); SGOT/AST 13 U/L (15-37); SGPT/ALT 25 U/L (12-78); TOT PROT 6.5 g/dl (6.4-8.2)
--- NOTE | 2018-03-07 08:36 | DS ---
Physical Examination Vital Signs: Vital Signs Temperature 97.8 F 03/07/18 05:55 Pulse Rate 61 03/07/18 05:55 Respiratory Rate 20 03/07/18 05:55 Blood Pressure 134/69 03/07/18 05:55 O2 Sat by Pulse Oximetry (%) 97 03/07/18 03:00 Constitutional: Yes: No Distress Eyes: Yes: WNL HENT: Yes: WNL Neck: Yes: WNL Cardiovascular: Yes: WNL Respiratory: Yes: WNL Gastrointestinal: Yes: WNL Renal/: Yes: WNL Musculoskeletal: Yes: WNL Extremities: Yes: WNL Edema: No Peripheral Pulses WNL: Yes Integumentary: Yes: WNL Wound/Incision: Yes: Clean/Dry Neurological: Yes: WNL ...Motor Strength: WNL Psychiatric: Yes: WNL Labs: CBC, BMP 03/06/18 06:10 03/07/18 06:10 Discharge Summary Reason For Visit: CHEST PAIN Current Active Problems Chest pain (Acute) HTN (hypertension) (Acute) Leg swelling (Acute) Hospital Course: STRESS TEST NEGATIVE FOR ACUTE ISCHEMIA, F/U OUTPATIENT DR CHIANG AND DR SUNSHINE - Instructions Diet, Activity, Other Instructions: SEE DR SUNSHINE IN 1 MONTH Referrals: Bay Sunshine MD [Primary Care Provider] - Disposition: HOME - Home Medications Comprehensive Discharge Medication List: Ambulatory Orders Estradiol 2 mg PO DAILY 01/02/15 Hctz 25Mg/Triamterene [Dyazide 25/37.5 -] 1 cap PO DAILY 01/02/15 Simvastatin [Zocor -] 20 mg PO HS 01/02/15 Apremilast [Otezla] 30 mg PO DAILY 01/03/15 Aspirin Coated [Ecotrin -] 81 mg PO DAILY 01/03/15 Cyanocobalamin [Vitamin B12 -] 1,000 mcg PO DAILY 01/03/15 Gabapentin [Neurontin -] 300 mg PO BID 01/03/15 Valsartan 160 mg PO DAILY 05/26/16 Trazodone HCl 50 mg PO HS 06/03/16
[2018-03-07] MEDS ORDERED: PT OWN MED DRAWER 7, Y5N ONE (09:11)
[2018-03-07] MEDS: GABAPENTIN 300 MG CAPSULE (FP) PO SCH (09:31)
[2018-03-07] MEDS: VALSARTAN 160 MG TABLET (UD) PO SCH (09:31)
[2018-03-07] MEDS: CYANOCOBALAMIN 1,000 MCG TABLET (FP) PO SCH (09:32)
[2018-03-07] MEDS: ASPIRIN COATED 81 MG TABLET.EC PO SCH (09:32)
[2018-03-07] MEDS: TRIAMTERENE AND HCTZ - 37.5 MG/25 MG CAPSULE PO SCH (09:32)
[2018-03-07] MEDS ORDERED: REGADENOSON 0.4 MG/5 ML PRE-FILLED SYRINGE IVPUSH ONE ×2 (10:00→11:15)
[2018-03-07] MEDS ORDERED: RANITIDINE HCL 150 MG TABLET (FP) PO SCH (10:00)
[2018-03-07 14:56] VITALS: BP 129/69; PULSE 70; TEMP 98.6
--- NOTE | 2018-03-07 16:06 | PN ---
Progress Note, Physician Chief Complaint: sob History of Present Illness: no sob--not ambulating no leg swelling no more cp no palpit - Current Medication List Current Medications: Active Medications Aspirin (Ecotrin -) 81 mg PO DAILY [facility] Last Admin: 03/07/18 09:32 Dose: 81 mg Atorvastatin Calcium (Lipitor -) 10 mg PO HS [facility] Last Admin: 03/06/18 21:08 Dose: 10 mg Cyanocobalamin (Vitamin B12 -) 1,000 mcg PO DAILY [facility] Last Admin: 03/07/18 09:32 Dose: 1,000 mcg Gabapentin (Neurontin -) 300 mg PO BID [facility] Last Admin: 03/07/18 09:31 Dose: 300 mg Non-Formulary Medication (Apremilast [Otezla]) 30 mg PO DAILY [facility] Non-Formulary Medication (Estradiol [Estradiol]) 2 mg PO DAILY [facility] Ranitidine HCl (Zantac -) 150 mg PO DAILY [facility] Last Admin: 03/07/18 09:32 Dose: 150 mg Trazodone HCl (Desyrel -) 50 mg PO [facility] Last Admin: 03/06/18 21:08 Dose: 50 mg Triamterene/HCTZ (Dyazide 25/37.5mg) 1 cap PO DAILY [facility] Last Admin: 03/07/18 09:32 Dose: 1 cap Valsartan (Diovan -) 160 mg PO DAILY [facility] Last Admin: 03/07/18 09:31 Dose: 160 mg - Objective Vital Signs: Vital Signs Temperature 98.6 F 03/07/18 14:00 Pulse Rate 70 03/07/18 14:00 Respiratory Rate 20 03/07/18 14:00 Blood Pressure 129/69 03/07/18 14:00 O2 Sat by Pulse Oximetry (%) 97 03/07/18 10:00 Constitutional: Yes: No Distress, Calm Eyes: No: Sclera Icterus HENT: No: Nasal Congestion Cardiovascular: Yes: Regular Rate and Rhythm, JVD, S1, S2, Other (PMI non diplaced). No: Gallop, Murmur Respiratory: Yes: CTA Bilaterally. No: Accessory Muscle Use, Rales, Wheezes Gastrointestinal: Yes: Normal Bowel Sounds, Soft. No: Tenderness Musculoskeletal: Yes: Other (No kyphosis) Extremities: No: Cold Edema: No Integumentary: No: Jaundice Neurological: Yes: Alert, Oriented (x3) Psychiatric: No: Agitated Labs: CBC, BMP 03/06/18 06:10 03/07/18 06:10 INR, PTT INR 1.08 (0.82-1.09) 03/05/18 13:34 Assessment/Plan ECG--NSR, no path q's. + NSST-Ts diffusely. similar to 12/23 office tracing CXR--clear lungs/pleura Echo 02/22 (here): nl LV/EF. nl RV. nl LA. mild MR/TR. peak TR gradient at least 27. no peric effusion. MPI 02/22 (here), [place]: no ST change vs baseline. no ischemia/normal perfusion. nl EF. no TID noted. CTA chest: no PE, normal PA trunk size, no RV strain findings. small bilat effusions. Stress Echo 01/23: 6 min (7 METs). No CP. 1-[address] depressions inferior leads, V4-6. NO ECHO ISCHEMIA SOB: -new exertional intolerance on DOA (03/05). -assctd unilateral LLE swelling on 03/03--no cord/tenderness on exam, sono negative for DVT. -no ischemia on nuclear stress -no overt volume on exam but JVD impressive on ER exam. BNP 700. -small bilat effusions on CT chest. -Echo unrevealing. -03/07: JVD persists on exam--suspect occult (early) diast LV dysfunction -ok for discharge, as she is well compensated -to start lasix 40 po daily. will do BMP for me in 5 days (rx given). -BP control--targets sbp<130 -to see me in office 2 wks -will discuss FADY w/u and tx as outpt chest pain: -past h/o non-cardiac CP with false positive nuclear-->benign cath per pt -recent same with stress echo likely false positive ECG, echo images normal augmentation -atypical sx's on DOA, ? anxiety related to new sob sx's. -ekg, enzymes benign -MPI today no ischemia--no further w/u warranted. HTN: -bp running high normal here -target sbp <130 as above--no changes, until can reassess after diuresis HPL: -cont home statin
== END 2018-03-07 18:56 | disposition home or self-care (01) ==
LOC: JER 12:31 → JERBED 18:23 → J4S 03-06 12:44
PROVIDERS: ADMIT Family Medicine; ATTEND Family Medicine
PROC: 3E033GC Introduction of Other Therapeutic Substance into Peripheral Vein, Percutaneous Approach (ICD-10-PCS; principal; 2018-03-05)
DX: R07.9 Chest pain, unspecified (principal); R22.43 Localized swelling, mass and lump, lower limb, bilateral; I10 Essential (primary) hypertension; E78.5 Hyperlipidemia, unspecified; K27.9 Peptic ulcer, site unspecified, unspecified as acute or chronic, without hemorrhage or perforation; M54.30 Sciatica, unspecified side; Z79.82 Long term (current) use of aspirin; Z98.61 Coronary angioplasty status
CPT/HCPCS: 36415; 71046-TC-FY; 71275-TC; 78452-TC; 80048; 80053; 80061; 82550; 83721; 83735; 83880; 84100; 84484; 85025; 85610; 93005; 93010; 93017; 93306-TC; 93971-TC; 96374; 99285-25; A9502; G0378; J2785

== ENCOUNTER 2022-09-08 06:21 | Day surgery (SDC) | payer OTHER, BC ==
[2022-09-06 15:10] VITALS: BMI 31.3
[2022-09-08] MEDS: PHENYLEPHRINE 2.5% OPTHALMIC DROP 2ML BOTTLE ONE ×3 (06:55→07:05)
[2022-09-08] MEDS: TROPICAMIDE 1% OPHTH SOLN 15 ML BOTTLE ONE ×3 (06:55→07:05)
[2022-09-08] MEDS: CIPROFLOXACIN 0.3% EYE DROPS 5 ML BOTTLE ONE ×3 (06:55→07:05)
[2022-09-08] MEDS: CYCLOPENTOLATE 2% OPHTH SOLN 2 ML BOTTLE ONE ×3 (06:55→07:05)
[2022-09-08 07:08] VITALS: RESP 16
[2022-09-08] MEDS ORDERED: PHENYLEPHRINE/KETOROLAC 4 ML VIAL IO ONE (07:18)
[2022-09-08] MEDS ORDERED: EPINEPHrine/PF 1 MG/1 ML (1:1,000) AMPULE ONE (07:18)
[2022-09-08] MEDS ORDERED: CARBACHOL 0.01% INTRA-OCULAR 1.5 ML VIAL ONE (07:19)
[2022-09-08] MEDS ORDERED: BSS (NA/CA/MG/K) BALANCED SALT SOLUTION OPHTH SOLN 15 ML BOTTLE ONE (07:19)
[2022-09-08] MEDS ORDERED: TETRACAINE 0.5% OPHTH SOLN 2 ML BOTTLE ONE (07:19)
[2022-09-08] MEDS ORDERED: ACETYLCHOLINE 1:100 INTRA-OCUL 20 MG/2 ML KIT ONE (07:19)
[2022-09-08] MEDS ORDERED: TRYPAN BLUE 0.5 ML DISP.SYRIN ONE (07:19)
[2022-09-08] MEDS ORDERED: NEO/POLYMYX B SULF/DEXAMETH OPHTHALMIC 5ML BOTTLE ONE (07:19)
[2022-09-08] MEDS ORDERED: LIDOCAINE HCL/PF 1% SDV 5ML VIAL ONE (07:19)
[2022-09-08] MEDS ORDERED: MIDAZOLAM HCL 2 MG/2 ML SINGLE DOSE VIAL ONE (08:18)
[2022-09-08] MEDS ORDERED: KETOROLAC TROMETHAMINE 30 MG/1 ML VIAL ONE (08:18)
[2022-09-08 09:04] VITALS: TEMP 97.9
[2022-09-08 09:17] VITALS: BP 128/65; PULSE 67
== END 2022-09-08 09:25 | disposition home or self-care (01) ==
LOC: FASU 06:21
PROVIDERS: ATTEND Ophthalmology
PROC: 08RK3JZ Replacement of Left Lens with Synthetic Substitute, Percutaneous Approach (ICD-10-PCS; principal; 2022-09-08 08:23)
DX: H26.8 Other specified cataract (principal)
CPT/HCPCS: 66984; V2632; J1097

== ENCOUNTER 2023-04-19 04:52 | Day surgery (SDC) | payer OTHER, BC ==
[2023-04-18 11:26] VITALS: BMI 31.3
[~2023-04-19 04:52] MED LIST: DEXAMETHASONE SOD PHOSPHATE 10 MG/1 ML VIAL IVPUSH ONE; IOHEXOL 180 MG/1 ML ML IJ ONE; LIDOCAINE HCL 1% PRESERVATIVE FREE - 30ML VIAL IJ ONE
[2023-04-19 07:58] VITALS: RESP 20
[2023-04-19] MEDS ORDERED: DEXAMETHASONE SOD PHOSPHATE 10 MG/1 ML VIAL IVPUSH ONE (09:06)
[2023-04-19] MEDS ORDERED: LIDOCAINE HCL 1% PRESERVATIVE FREE - 30ML VIAL IJ ONE (09:06)
[2023-04-19] MEDS ORDERED: IOHEXOL 180 MG/1 ML ML IJ ONE (09:06)
[2023-04-19 10:10] VITALS: BP 130/70; PULSE 70; TEMP 97.8
== END 2023-04-19 09:50 | disposition home or self-care (01) ==
LOC: JASU-SURG 04:52
PROVIDERS: ATTEND Pain Medicine Pain Medicine
PROC: 3E0R3BZ Introduction of Anesthetic Agent into Spinal Canal, Percutaneous Approach (ICD-10-PCS; 2023-04-19)
PROC: 3E0R33Z Introduction of Anti-inflammatory into Spinal Canal, Percutaneous Approach (ICD-10-PCS; principal; 2023-04-19 08:45)
DX: M54.16 Radiculopathy, lumbar region (principal)
CPT/HCPCS: 76000-TC-FY; J1100

== ENCOUNTER 2023-04-27 06:31 | Day surgery (SDC) | payer OTHER, BC ==
[2023-04-20 17:56] VITALS: BMI 31.3
[2023-04-27] MEDS ORDERED: PHENYLEPHRINE 2.5% OPTHALMIC DROP 2ML BOTTLE ONE (06:44)
[2023-04-27] MEDS ORDERED: CYCLOPENTOLATE 2% OPHTH SOLN 2 ML BOTTLE ONE (06:44)
[2023-04-27] MEDS ORDERED: CIPROFLOXACIN HCL 0.3% OPHTH 2.5ML BOTTLE ONE (06:44)
[2023-04-27] MEDS ORDERED: TROPICAMIDE 1% OPHTH SOLN 15 ML BOTTLE ONE (06:44)
[2023-04-27] MEDS ORDERED: CYCLOPENTOLATE 2% OPHTH SOLN 2 ML BOTTLE OD ONE ×3 (06:50→07:00)
[2023-04-27] MEDS ORDERED: TROPICAMIDE 1% OPHTH SOLN 15 ML BOTTLE OD ONE ×3 (06:50→07:00)
[2023-04-27] MEDS ORDERED: PHENYLEPHRINE 2.5% OPHTH SOLN 15 ML BOTTLE OD ONE ×3 (06:50→07:00)
[2023-04-27] MEDS ORDERED: CIPROFLOXACIN 0.3% EYE DROPS 5 ML BOTTLE OD ONE ×3 (06:50→07:00)
[2023-04-27] MEDS ORDERED: PHENYLEPHRINE/KETOROLAC 4 ML VIAL IO ONE (07:20)
[2023-04-27] MEDS ORDERED: EPINEPHrine/PF 1 MG/1 ML (1:1,000) AMPULE ONE (07:21)
[2023-04-27] MEDS ORDERED: TETRACAINE 0.5% OPHTH SOLN 2 ML BOTTLE ONE (07:21)
[2023-04-27] MEDS ORDERED: LIDOCAINE HCL/PF 1% SDV 5ML VIAL ONE (07:21)
[2023-04-27] MEDS ORDERED: NEO/POLYMYX B SULF/DEXAMETH OPHTHALMIC 5ML BOTTLE ONE (07:21)
[2023-04-27] MEDS ORDERED: CARBACHOL 0.01% INTRA-OCULAR 1.5 ML VIAL ONE (07:21)
[2023-04-27] MEDS ORDERED: BSS (NA/CA/MG/K) BALANCED SALT SOLUTION OPHTH SOLN 15 ML BOTTLE ONE (07:21)
[2023-04-27] MEDS ORDERED: MIDAZOLAM HCL 2 MG/2 ML SINGLE DOSE VIAL ONE (07:50)
[2023-04-27 08:42] VITALS: PULSE 65; RESP 16; TEMP 99
[2023-04-27 08:52] VITALS: BP 133/64
== END 2023-04-27 09:15 | disposition home or self-care (01) ==
LOC: FASU 06:31
PROVIDERS: ATTEND Ophthalmology
PROC: 08RJ3JZ Replacement of Right Lens with Synthetic Substitute, Percutaneous Approach (ICD-10-PCS; principal; 2023-04-27 08:15)
DX: H26.8 Other specified cataract (principal)
CPT/HCPCS: 66984; V2632; J1097

== ENCOUNTER 2023-05-10 04:08 | Day surgery (SDC) | payer OTHER, BC ==
[2023-05-06 14:51] VITALS: BMI 31.3
[2023-05-10] MEDS ORDERED: IOHEXOL 180 MG/1 ML ML IJ ONE (08:53)
[2023-05-10] MEDS ORDERED: DEXAMETHASONE SOD PHOSPHATE 10 MG/1 ML VIAL IM ONE (08:53)
[2023-05-10] MEDS ORDERED: LIDOCAINE HCL 1%, 10 MG/ML (50 mL VIAL) NR ONE ×2 (08:53)
[2023-05-10 09:14] VITALS: RESP 18
[2023-05-10 09:37] VITALS: BP 127/71; PULSE 67; TEMP 97
[2023-05-10] MEDS ORDERED: ACETAMINOPHEN 500 MG TABLET (FP) PO PRN (13:13)
== END 2023-05-10 09:25 | disposition home or self-care (01) ==
LOC: JASU-SURG 04:08
PROVIDERS: ATTEND Pain Medicine Pain Medicine
PROC: 3E0R3BZ Introduction of Anesthetic Agent into Spinal Canal, Percutaneous Approach (ICD-10-PCS; 2023-05-10)
PROC: 3E0R33Z Introduction of Anti-inflammatory into Spinal Canal, Percutaneous Approach (ICD-10-PCS; principal; 2023-05-10 08:30)
DX: M54.16 Radiculopathy, lumbar region (principal)
CPT/HCPCS: 76000-TC-FY; J1100

== ENCOUNTER 2023-06-14 04:36 | Day surgery (SDC) | payer OTHER, BC ==
[2023-06-13 16:22] VITALS: BMI 31.3
[~2023-06-14 04:36] MED LIST changes: +BUPIVACAINE HCL/PF 0.75% 10 ML VIAL NR ONE; -DEXAMETHASONE SOD PHOSPHATE 10 MG/1 ML VIAL IVPUSH ONE; -IOHEXOL 180 MG/1 ML ML IJ ONE
[2023-06-14] MEDS ORDERED: ACETAMINOPHEN 500 MG TABLET (FP) PO PRN (09:10)
[2023-06-14] MEDS ORDERED: LIDOCAINE HCL 1% PRESERVATIVE FREE - 30ML VIAL IJ ONE (09:43)
[2023-06-14] MEDS ORDERED: BUPIVACAINE HCL/PF 0.75% 10 ML VIAL NR ONE (09:43)
[2023-06-14 10:24] VITALS: BP 126/54; PULSE 82; RESP 18; TEMP 97.7
== END 2023-06-14 10:29 | disposition home or self-care (01) ==
LOC: JASU-SURG 04:36
PROVIDERS: ATTEND Pain Medicine Pain Medicine
PROC: 3E0T3BZ Introduction of Anesthetic Agent into Peripheral Nerves and Plexi, Percutaneous Approach (ICD-10-PCS; principal; 2023-06-14 10:00)
DX: M47.816 Spondylosis without myelopathy or radiculopathy, lumbar region (principal)
CPT/HCPCS: 76000-TC-FY

== ENCOUNTER 2023-08-16 04:25 | Day surgery (SDC) | payer OTHER, BC ==
[2023-08-15 10:12] VITALS: BMI 31.3
[2023-08-16 06:33] VITALS: RESP 18
[2023-08-16] MEDS ORDERED: LIDOCAINE HCL/PF 1% SDV 5ML VIAL ONE (07:16)
[2023-08-16] MEDS ORDERED: BUPIVACAINE HCL/PF 0.75% 10 ML VIAL ONE (07:16)
[2023-08-16] MEDS ORDERED: LIDOCAINE HCL/PF 2% SDV 5ML VIAL ONE ×2 (07:16→08:47)
[2023-08-16] MEDS ORDERED: DEXAMETHASONE SOD PHOSPHATE 10 MG/1 ML VIAL ONE (07:16)
[2023-08-16] MEDS ORDERED: LIDOCAINE 1% P/F 10 MG/ML VIAL INF ONE (08:49)
[2023-08-16] MEDS ORDERED: BUPIVACAINE HCL/PF 0.75% 10 ML VIAL NR ONE (08:49)
[2023-08-16] MEDS ORDERED: DEXAMETHASONE SOD PHOSPHATE 10 MG/1 ML VIAL IVPUSH ONE (08:49)
[2023-08-16] MEDS ORDERED: LIDOCAINE HCL/PF 2% SDV 5ML VIAL INF ONE (08:49)
[2023-08-16 09:39] VITALS: BP 133/67; PULSE 75; TEMP 97.8
[2023-08-16] MEDS ORDERED: ACETAMINOPHEN 500 MG TABLET (FP) PO PRN (10:38)
== END 2023-08-16 09:40 | disposition home or self-care (01) ==
LOC: JASU-SURG 04:25
PROVIDERS: ATTEND Pain Medicine Pain Medicine
PROC: 015B3ZZ Destruction of Lumbar Nerve, Percutaneous Approach (ICD-10-PCS; principal; 2023-08-16 08:00)
DX: M47.816 Spondylosis without myelopathy or radiculopathy, lumbar region (principal)
CPT/HCPCS: 76000-TC-FY; J1100

== ENCOUNTER 2023-10-04 04:09 | Day surgery (SDC) | payer OTHER, BC ==
[2023-09-30 09:20] VITALS: BMI 31.3
[2023-10-04] MEDS ORDERED: ACETAMINOPHEN 500 MG TABLET (FP) PO PRN (08:21)
[2023-10-04] MEDS ORDERED: TRIAMCINOLONE ACET 40MG/1ML VIAL ONE (08:34)
[2023-10-04] MEDS ORDERED: LIDOCAINE HCL/PF 1% SDV 5ML VIAL ONE (08:35)
[2023-10-04] MEDS ORDERED: BUPIVACAINE HCL/PF 0.5% (5MG/ML) 10 ML VIAL ONE (08:35)
[2023-10-04] MEDS: LIDOCAINE 1% P/F 10 MG/ML VIAL INF ONE (09:21)
[2023-10-04] MEDS: IOHEXOL 180 MG/1 ML ML IJ ONE (09:22)
[2023-10-04] MEDS: BUPIVACAINE HCL/PF 0.5% (5 MG/ML) 30 ML VIAL IJ ONE (09:23)
[2023-10-04] MEDS: TRIAMCINOLONE ACET 40MG/1ML VIAL IM ONE (09:24)
[2023-10-04 09:51] VITALS: RESP 18; TEMP 97.3
[2023-10-04 10:03] VITALS: BP 121/58; PULSE 88
== END 2023-10-04 10:04 | disposition home or self-care (01) ==
LOC: JASU-SURG 04:09
PROVIDERS: ATTEND Pain Medicine Pain Medicine
PROC: 3E0U3BZ Introduction of Anesthetic Agent into Joints, Percutaneous Approach (ICD-10-PCS; 2023-10-04)
PROC: 3E0U33Z Introduction of Anti-inflammatory into Joints, Percutaneous Approach (ICD-10-PCS; principal; 2023-10-04 08:15)
DX: M53.3 Sacrococcygeal disorders, not elsewhere classified (principal)
CPT/HCPCS: 76000-TC-FY

== ENCOUNTER 2023-11-18 04:26 | Day surgery (SDC) | payer OTHER, BC ==
[2023-11-17 15:49] VITALS: BMI 31.1
[2023-11-18] MEDS ORDERED: DEXAMETHASONE SOD PHOSPHATE 10 MG/1 ML VIAL ONE (07:14)
[2023-11-18] MEDS ORDERED: LIDOCAINE HCL/PF 1% SDV 5ML VIAL ONE (07:14)
[2023-11-18] MEDS: DEXAMETHASONE SOD PHOSPHATE 10 MG/1 ML VIAL IVPUSH ONE (15:00)
[2023-11-18] MEDS: LIDOCAINE HCL 1% PRESERVATIVE FREE - 30ML VIAL IJ ONE (15:00)
[2023-11-18] MEDS: IOHEXOL 180 MG/1 ML ML IJ ONE (15:00)
[2023-11-18 15:36] VITALS: RESP 18
[2023-11-18 15:49] VITALS: BP 119/75; PULSE 77; TEMP 98
[2023-11-22] MEDS ORDERED: ACETAMINOPHEN 500 MG TABLET (FP) PO PRN (12:03)
== END 2023-11-18 15:45 | disposition home or self-care (01) ==
LOC: JASU-SURG 04:26
PROVIDERS: ATTEND Pain Medicine Pain Medicine
PROC: 3E0R3BZ Introduction of Anesthetic Agent into Spinal Canal, Percutaneous Approach (ICD-10-PCS; 2023-11-18)
PROC: 3E0R33Z Introduction of Anti-inflammatory into Spinal Canal, Percutaneous Approach (ICD-10-PCS; principal; 2023-11-18 15:15)
DX: M54.16 Radiculopathy, lumbar region (principal)
CPT/HCPCS: 76000-TC-FY; J1100

== ENCOUNTER 2024-06-28 04:02 | Day surgery (SDC) | payer OTHER, BC ==
[2024-06-28 07:46] VITALS: TEMP 97.5; BMI 27.8
[2024-06-28] MEDS ORDERED: ACETAMINOPHEN 500 MG TABLET (FP) PO PRN (09:24)
[2024-06-28] MEDS: LIDOCAINE HCL 1% PRESERVATIVE FREE - 30ML VIAL IJ ONE ×2 (09:37)
[2024-06-28 10:12] VITALS: BP 129/52; PULSE 68; RESP 18
== END 2024-06-28 10:22 | disposition home or self-care (01) ==
LOC: JASU-SURG 04:02
PROVIDERS: ATTEND Pain Medicine Pain Medicine
PROC: 01HY3MZ Insertion of Neurostimulator Lead into Peripheral Nerve, Percutaneous Approach (ICD-10-PCS; principal; 2024-06-28 09:00)
DX: G89.4 Chronic pain syndrome (principal)
CPT/HCPCS: 64555; C1778

== ENCOUNTER 2024-07-12 09:53 | Day surgery (SDC) | payer OTHER, BC ==
[2024-07-11 12:40] VITALS: BMI 27.8
[2024-07-12] MEDS: LIDOCAINE HCL 1% PRESERVATIVE FREE - 30ML VIAL IJ ONE
[2024-07-12 09:58] VITALS: RESP 20
[2024-07-12] MEDS ORDERED: ACETAMINOPHEN 500 MG TABLET (FP) PO PRN (12:02)
[2024-07-12 13:38] VITALS: BP 110/42; PULSE 63; TEMP 97.3
== END 2024-07-12 12:44 | disposition home or self-care (01) ==
LOC: JASU-SURG 09:53
PROVIDERS: ATTEND Pain Medicine Pain Medicine
PROC: 01HY3MZ Insertion of Neurostimulator Lead into Peripheral Nerve, Percutaneous Approach (ICD-10-PCS; principal; 2024-07-12 11:35)
DX: G89.4 Chronic pain syndrome (principal)
CPT/HCPCS: 64555; C1778; 87070; 87186; 87205

== ENCOUNTER 2024-07-27 03:49 | Day surgery (SDC) | payer OTHER, BC ==
[2024-07-26 15:00] VITALS: BMI 27.6
[2024-07-27] MEDS ORDERED: ACETAMINOPHEN 500 MG TABLET (FP) PO PRN (10:04)
[2024-07-27 10:18] VITALS: RESP 18
[2024-07-27] MEDS: LIDOCAINE HCL 1% PRESERVATIVE FREE - 30ML VIAL IJ ONE ×3 (11:50)
[2024-07-27 15:52] VITALS: BP 111/49; PULSE 62; TEMP 97.8
== END 2024-07-27 12:41 | disposition home or self-care (01) ==
LOC: JASU-SURG 03:49
PROVIDERS: ATTEND Pain Medicine Pain Medicine
PROC: 01HY3MZ Insertion of Neurostimulator Lead into Peripheral Nerve, Percutaneous Approach (ICD-10-PCS; principal; 2024-07-27 11:30)
DX: G89.4 Chronic pain syndrome (principal); M79.604 Pain in right leg
CPT/HCPCS: 64555; C1778